=== PATIENT | male | born 1960 | race Caucasian/White ===

== ENCOUNTER 2016-11-24 05:33 | Emergency (ER) | payer BC, OTHER ==
[~2016-11-24] VITALS: Ht 175.3 cm; Wt 86.4 kg
[~2016-11-24 05:33] MED LIST: ANTIVERT 25MG25 MG PO; DOXYCYCLINE 10100 MG PO; LEVAQUIN 5500 MG/TA1 PO; NKDA; NO HOME MEDICATIONS; ZITHROMAX 250M250 MG PO; ZOFRAN 4MG T4 MG/TAB PO; ZOFRAN ODT4 MG PO
[2016-11-24 05:35] VITALS: BP 90/71; PULSE 75; TEMP 98
== END 2016-11-24 06:30 | disposition home or self-care (01) ==
LOC: COL.ER 05:33
DX: H10.9 Unspecified conjunctivitis (principal)

== ENCOUNTER → 2017-08-18 | Outpatient (CLI) | payer BC | LOC: COL.RAD 06:42 → COL.LAB 06:42 → COL.RAD 07:30 | DX: R94.5 Abnormal results of liver function studies (principal) ==

== ENCOUNTER 2017-08-30 13:41 | Day surgery (SDC) | payer BC | END 2017-08-30 14:45 | disposition home or self-care (01) | LOC: SDCO 13:41 | DX: Z12.11 Encounter for screening for malignant neoplasm of colon (principal); Z53.09 Procedure and treatment not carried out because of other contraindication ==

== ENCOUNTER 2017-09-10 09:16 | Day surgery (SDC) | payer BC ==
[~2017-09-10] VITALS: Ht 175.3 cm; Wt 82.4 kg
[2017-09-10 09:36] VITALS: BP 109/74; PULSE 63; TEMP 97
[2017-09-10 10:45] VITALS: BP 98/68; PULSE 75; TEMP 98.1
[2017-09-10 11:00] VITALS: BP 108/75; PULSE 74
[2017-09-10 11:54] VITALS: BP 97/79; PULSE 56
== END 2017-09-10 12:30 | disposition home or self-care (01) ==
LOC: SDCO 09:16
DX: Z12.11 Encounter for screening for malignant neoplasm of colon (principal)
CPT/HCPCS: OP; J2250; J3010; J7030

== ENCOUNTER 2019-10-14 00:05 | Emergency (ER) | payer BC ==
[~2019-10-14] VITALS: Ht 172.7 cm; Wt 77.3 kg
[2019-10-14 00:23] VITALS: TEMP 97.7
[2019-10-14 00:45] LABS: BASO % 0.2 % (0.0-2.0); EOS # 0.2 (0.0-0.7); EOS % 1.8 % (0-4.0); GRAN # 9.5 (1.4-6.5); GRAN % 72.1 % (42.2-75.2); HEMATOCRIT 47.4 % (42.0-52.0); HEMOGLOBIN 15.4 g/dl (13.5-18.0); LYMPH # 2.6 (1.2-3.4); LYMPH % 19.6 % (20.0-51.0); MEAN CELL VOLUME 93 fl (80.0-100.0); MEAN CORPUSCULAR HEMOGLOBIN 30 pg (27.0-31.0); MEAN CORPUSCULAR HGB CONC 33 g/dl (33.0-37.0); MONO # 0.8 (0.1-0.6); MONO % 5.8 % (1.7-9.3); PLATELET COUNT 151 K/mm3 (130-400); RED BLOOD COUNT 5.08 M/mm3 (4.20-5.60); REDCELL DISTRIBUTION WIDTH-CV 13.3 % (11.5-14.5)
[2019-10-14 01:01] LABS: ALBUMIN 4.4 gm/dL (3.5-5.0); BILIRUBIN,TOTAL 1.3 mg/dL (0.0-1.0); C-REACTIVE PROTEIN 0.7 mg/dL (0.0-0.9); CALCIUM 9.3 mg/dL (8.4-10.2); CREATININE, serum 1.13 (0.66-1.25); TOTAL PROTEIN 8.2 gm/dL (6.4-8.2)
[2019-10-14 01:43] LABS: COLLECTION METHOD CLEAN CATCH
[2019-10-14 02:16] LABS: MUCOUS Present /lpf; PH 5 (5-8); SQUAMOUS EPITHELIAL 0-2 /hpf; URINE APPEARANCE Hazy; URINE BACTERIA Rare /hpf; URINE BILIRUBIN Negative (NEGATIVE); URINE BLOOD Negative (NEGATIVE); URINE COLOR Amber; URINE GLUCOSE Negative (NEGATIVE); URINE KETONE Negative (NEGATIVE); URINE LEUKOCYTE ESTERASE Negative (NEGATIVE); URINE NITRATE Negative (NEGATIVE); URINE PROTEIN(semi-quant) 1+ (NEGATIVE); URINE UROBILINOGEN >=4.0 mg/dL (NEGATIVE)
[2019-10-14] MEDS ORDERED: ZOFRAN ODT4 MG PO (02:34)
[2019-10-14 02:50] VITALS: BP 100/71; PULSE 88
== END 2019-10-14 02:50 | disposition home or self-care (01) ==
LOC: COL.ER 00:05
PROVIDERS: Physician Assistant
DX: K52.9 Noninfective gastroenteritis and colitis, unspecified (principal)
CPT/HCPCS: J1885; J2405; J7030; Q9967

== ENCOUNTER → 2019-10-25 | Outpatient (CLI) | payer BC | LOC: COL.RAD 08:31 | DX: R74.8 Abnormal levels of other serum enzymes (principal) ==

== ENCOUNTER → 2019-12-06 | Outpatient (CLI) | payer BC ==
[~2019-12-06] VITALS: Ht 170.2 cm; Wt 76.9 kg
[2019-12-06] VITALS (12 sets, daily range): BP systolic 102–120; BP diastolic 65–77; PULSE 55–71
[~2019-12-06] MED LIST changes: +DUO-KAPS1 CAP PO
--- NOTE | 2019-12-06 08:00 | NUR ---
PT WAS TAKEN TO ULTRASOUND AMBULATORY. PLACED ON THE TABLE AND MONITORING EQUIPMENT PLACED.
== END ==
LOC: COL.RAD 07:28
DX: R16.1 Splenomegaly, not elsewhere classified (principal); R93.5 Abnormal findings on diagnostic imaging of other abdominal regions, including retroperitoneum; R94.5 Abnormal results of liver function studies

== ENCOUNTER → 2020-04-05 | Outpatient (CLI) | payer BC | LOC: COL.RAD 07:07 | DX: K74.3 Primary biliary cirrhosis (principal); K82.8 Other specified diseases of gallbladder ==

== ENCOUNTER → 2021-04-15 | Outpatient (CLI) | payer BC | LOC: COL.RAD 07:00 | DX: K74.3 Primary biliary cirrhosis (principal) ==

== ENCOUNTER → 2022-02-27 | Outpatient (CLI) | payer BC | LOC: COL.RAD 07:39 | DX: R16.1 Splenomegaly, not elsewhere classified (principal) ==

== ENCOUNTER 2022-04-28 08:36 | Day surgery (SDC) | payer BC ==
[~2022-04-28] VITALS: Ht 170.2 cm; Wt 81.0 kg
[2022-04-28] MEDS ORDERED: ACTIGALL 300MG300 MG PO (08:59)
[2022-04-28 09:20] VITALS: BP 103/69; PULSE 60; TEMP 98.3
[2022-04-28 10:55] VITALS: BP 97/65; PULSE 69; TEMP 97.6
[2022-04-28 11:10] VITALS: BP 113/78; PULSE 70
[2022-04-28 11:25] VITALS: BP 113/75; PULSE 61
--- NOTE | 2022-04-28 12:09 | NUR ---
PT dismissed from endo via wheelchair to the PT entrence by Ilda DRAKE. PT has personal belongings and DC packet in hand, and was transferred into the care of his friend who is driving private car.
--- NOTE | 2022-04-28 12:10 | NUR ---
1055 - PT arrived from procedure drowsy but oriented. PT assisted with ambulating from cart to chair 2:1; gait is mildy unsteady. Warm blankets applied. Monitors applied and VSS. PT provided with a warm muffin and [employer] per request. PT denies nausea. NO vomiting. PT oriented to room and call carter, within reach. Verbal room report obtained. 1110 - VSS. PT continues to deny nausea. NO vomiting. PT expressed desire to be discharged. PT asked RN to call javier Gerard [phone]. Call carter remains within reach. 1115 - RN contacted javier per request; ETA about 12 noon. PT notified. 1125 - VSS. IV discontinued. Catheter tip intact. Pressure dressing applied. NO redness or swelling noted. DC instructions and educational material reviewed with the PT who verbalized understanding and signed the realted paperwork. Questions answered to PT satisfaction. PT denied needing assistance changing into personal clothes, call carter remains within reach.
== END 2022-04-28 12:10 | disposition home or self-care (01) ==
LOC: SDCO 08:36
DX: Z12.11 Encounter for screening for malignant neoplasm of colon (principal); K64.0 First degree hemorrhoids; K74.3 Primary biliary cirrhosis; K29.30 Chronic superficial gastritis without bleeding
CPT/HCPCS: J2704; J7030

== ENCOUNTER → 2022-05-07 | Outpatient (CLI) | payer BC ==
[~2022-05-07] MED LIST changes: +ACTIGALL 300MG300 MG PO
== END ==
LOC: COL.RAD 13:36
DX: K74.3 Primary biliary cirrhosis (principal)

== ENCOUNTER → 2023-04-14 | Outpatient (CLI) | payer BC | LOC: COL.RAD 06:45 | DX: K74.3 Primary biliary cirrhosis (principal); R79.89 Other specified abnormal findings of blood chemistry; R16.1 Splenomegaly, not elsewhere classified ==

== ENCOUNTER 2024-03-09 11:30 | Emergency (ER) | payer BC ==
[~2024-03-09] VITALS: Ht 170.2 cm; Wt 81.8 kg
[2024-03-09 11:35] VITALS: TEMP 98.8
[2024-03-09] MEDS ORDERED: NS 1,000 ML IV ONE ×2 (13:00→15:00)
[2024-03-09] MEDS ORDERED: Ondansetron 4 MG/2 ML VIAL IV PRN (13:00)
[2024-03-09] MEDS ORDERED: Loperamide 2 MG CAP PO ONE (13:00)
[2024-03-09 13:01] LABS: BASO % 0.4 % (0.0-2.0); EOS % 0.1 % (0.0-4.0); GRAN # 7.3 K/mm3 (1.4-6.5); GRAN % 88.9 % (42.2-75.2); HEMATOCRIT 50.5 % (42.0-52.0); HEMOGLOBIN 17.4 g/dl (13.5-18.0); LYMPH # 0.5 K/mm3 (1.2-3.4); LYMPH % 5.6 % (20.0-51.0); MEAN CELL VOLUME 92 fl (80.0-100.0); MEAN CORPUSCULAR HEMOGLOBIN 32 pg (27-31); MEAN CORPUSCULAR HGB CONC 35 g/dl (33.0-37.0); MEAN PLATELET VOLUME 12.9 fl (7.4-10.4); MONO # 0.4 K/mm3 (0.1-0.6); MONO % 4.9 % (1.7-9.3); PLATELET COUNT 107 K/mm3 (130-400); RED BLOOD COUNT 5.51 M/mm3 (4.20-5.60)
[2024-03-09 13:08] LABS: ALBUMIN 4.5 g/dL (3.4-4.8); BILIRUBIN,TOTAL 1.6 mg/dL (0.2-1.2); CALCIUM 9.8 mg/dL (8.4-10.2); CREATININE, serum 1.32 mg/dL (0.72-1.25); TOTAL PROTEIN 8.1 g/dl (6.2-8.1)
[2024-03-09] MEDS ORDERED: ZOFRAN ODT4 MG PO (14:59)
[2024-03-09 15:54] VITALS: BP 121/73; PULSE 98
== END 2024-03-09 15:54 | disposition home or self-care (01) ==
LOC: COL.ER 11:30
PROVIDERS: Personal Emergency Response Attendant
DX: R11.2 Nausea with vomiting, unspecified (principal); E86.0 Dehydration; R19.7 Diarrhea, unspecified
CPT/HCPCS: J2405; J7030